=== PATIENT | male | born 1940 | race Caucasian/White ===

== ENCOUNTER 2017-06-08 18:02 | Emergency (ER) | payer OTHER, BC ==
[2017-06-08 18:07] VITALS: BP 133/88; PULSE 98; TEMP 97.9; BMI 22.3
--- NOTE | 2017-06-08 18:20 | PDOC ---
History of Present Illness <Arlin Brooks - Last Filed: 06/08/17 18:38> - General History Source: Patient Exam Limitations: No Limitations - History of Present Illness Initial Comments: 06/08/17 18:27 The patient is a 77 year old male, with a significant past medical history of atrial fibrillation and prostate cancer, who presents to the emergency department via EMS, s/p mechanical fall. 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 While at the house, he reports he slipped and fell hitting his left buttock. He reports he had a difficulty ambulating to disarm the home alarm thus the police department arrived. He denies hitting his head. He denies any loss of consciousness. He denies any recent fevers, chills, headache or dizziness. He denies any recent nausea, vomit , diarrhea or constipation. He denies any recent chest pain or shortness of breath. He denies any recent dysuria, frequency, urgency or hematuria. Allergies: NKA Past surgical history: None reported. <Teresa Davis - Last Filed: 06/08/17 18:45> - General Chief Complaint: Injury Stated Complaint: FALL Time Seen by Provider: 06/08/17 18:20 Past History - Past Medical History Cardiac Disorders: Yes (A FIB) COPD: No - Suicide/Smoking/Psychosocial Hx Smoking History: Never smoked Have you smoked in the past 12 months: No Hx Alcohol Use: No Drug/Substance Use Hx: No Substance Use Type: Alcohol <Arlin Brooks - Last Filed: 06/08/17 18:38> <Teresa Davis - Last Filed: 06/08/17 18:45> - Past Medical History Allergies/Adverse Reactions: Allergies Allergy/AdvReac Type Severity Reaction Status Date / Time No Known Allergies Allergy Verified 06/08/17 18:03 Home Medications: Ambulatory Orders Apixaban [Eliquis] 5 mg PO DAILY 11/20/15 Metoprolol Tartrate 25 mg PO BID 11/20/15 Bicalutamide [Casodex -] 50 mg PO DAILY 06/08/17 Denosumab [Xgeva] 0 mg NR ASDIR 06/08/17 Digoxin [Lanoxin -] 0.125 mg PO DAILY 06/08/17 Furosemide [Lasix] 20 mg PO DAILY 06/08/17 Leuprolide Acetate [Lupron -] 0 mg SQ ASDIR 06/08/17 Review of Systems - Review of Systems Able to Perform ROS?: Yes Comments:: 06/08/17 18:27 GENERAL/CONSTITUTIONAL: No fever or chills. No weakness. HEAD, EYES, EARS, NOSE AND THROAT: No change in vision. No ear pain or discharge. No sore throat. CARDIOVASCULAR: No chest pain or shortness of breath. RESPIRATORY: No cough, wheezing, or hemoptysis. GASTROINTESTINAL: No nausea, vomiting, diarrhea or constipation. GENITOURINARY: No dysuria, frequency, or change in urination. MUSCULOSKELETAL: +Pain to the buttocks. No joint swelling or pain. No neck or back pain. SKIN: No rash NEUROLOGIC: No headache, vertigo, loss of consciousness, or change in strength/ sensation. ENDOCRINE: No increased thirst. No abnormal weight change. HEMATOLOGIC/LYMPHATIC: No anemia, easy bleeding, or history of blood clots. ALLERGIC/IMMUNOLOGIC: No hives or skin allergy. All Other Systems: Reviewed and Negative <Teresa Davis - Last Filed: 06/08/17 18:45> *Physical Exam - Vital Signs Last Vital Signs Temp Pulse Resp BP Pulse Ox 97.9 F 98 H 18 133/88 100 06/08/17 18:03 06/08/17 18:03 06/08/17 18:03 06/08/17 18:03 06/08/17 18:03 <Arlin Brooks - Last Filed: 06/08/17 18:38> - Vital Signs Last Vital Signs Temp Pulse Resp BP Pulse Ox 97.9 F 98 H 18 133/88 100 06/08/17 18:03 06/08/17 18:03 06/08/17 18:03 06/08/17 18:03 06/08/17 18:03 - Physical Exam Comments: 06/08/17 18:45 GENERAL: Awake, alert, and fully oriented x3, in no acute distress HEAD: No signs of trauma EYES: PERRLA, EOMI, sclera anicteric, conjunctiva clear ENT: Auricles normal inspection, hearing grossly normal, nares patent, oropharynx clear without exudates. Moist mucosa NECK: Normal ROM, supple, no lymphadenopathy, JVD, or masses LUNGS: Breath sounds equal, clear to auscultation bilaterally. No wheezes, and no crackles HEART: +Systolic murmur. Regular rate, normal S1 and S2, no murmurs, rubs or gallops ABDOMEN: Soft, nontender, normoactive bowel sounds. No guarding, no rebound. No masses EXTREMITIES: Full ROM of left leg. Normal range of motion, no edema. No clubbing or cyanosis. No cords, erythema, or tenderness NEUROLOGICAL: +Ambulatory with a shuffling gait which patient reports to be his baseline. Cranial nerves II through XII grossly intact. Normal speech SKIN: Warm, Dry, normal turgor, no rashes or lesions noted. 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 PAtient is alert and oriented x 3 and does not appear clinically intoxicated. He is ambulatory with a steady gait. He wants to go home. WIll discharge home. <Arlin Brooks - Last Filed: 06/08/17 18:38> *DC/Admit/Observation/Transfer - Discharge Dispostion Admit: No <Arlin Brooks - Last Filed: 06/08/17 18:38> - Attestations Scribe Attestion: 06/08/17 18:28 Documentation prepared by Teresa Davis, acting as medical aide for Arlin Brooks MD. <Teresa Davis - Last Filed: 06/08/17 18:45> Diagnosis at time of Disposition: Alcohol intoxication Qualifiers: Complication of substance-induced condition: uncomplicated Qualified Code(s): F10.920 - Alcohol use, unspecified with intoxication, uncomplicated - Discharge Dispostion Disposition: HOME Condition at time of disposition: Stable - Patient Instructions Printed Discharge Instructions: DI for Alcohol Abuse Additional Instructions: return to the ED for falls, confusion, passing out, other new or worsening symptoms. DO NOT DRIVE until tomorrow AM.
== END 2017-06-08 18:48 | disposition home or self-care (01) ==
LOC: FER 18:02
DX: F10.920 Alcohol use, unspecified with intoxication, uncomplicated (principal); I48.91 Unspecified atrial fibrillation; Z85.46 Personal history of malignant neoplasm of prostate; W18.39XA Other fall on same level, initial encounter; Y93.89 Activity, other specified; Y92.009 Unspecified place in unspecified non-institutional (private) residence as the place of occurrence of the external cause
CPT/HCPCS: 99281-25